=== PATIENT | male | born 1990 | race African-American/Black ===

== ENCOUNTER 2017-10-21 04:52 | Emergency (ER) | payer SELFPAY ==
[2017-10-21] MEDS ORDERED: Ibuprofen TAB* 600 MG PO ONE (05:14)
[2017-10-21] MEDS ORDERED: Tetan/Diph/Pertus SYR(Tdap)* 0.5 ML SYR(BOOSTRIX) use SYR IM ONE (05:14)
[2017-10-21] MEDS ORDERED: Ondansetron ODT TAB* 4 MG SL ONE (05:15)
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
[2017-10-21 06:48] VITALS: BP 126/84
--- NOTE | 2017-10-21 08:17 | RAD ---
INDICATION: Head injury. COMPARISON: There are no prior studies available for comparison. TECHNIQUE: Contiguous axial sections of the brain were obtained from the skull base to the vertex without contrast. FINDINGS: The ventricles, cisterns and sulci are within normal limits. No significant focal abnormality or mass effect is seen. There is no evidence for hemorrhage. No significant focal osseous abnormality is seen. The visualized portion of the paranasal sinuses and mastoid air cells appear clear. IMPRESSION: NO EVIDENCE FOR ACUTE INTRACRANIAL ABNORMALITY.
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
== END 2017-10-21 06:49 | disposition home or self-care (01) ==
LOC: ED 04:52
DX: S09.90XA Unspecified injury of head, initial encounter (principal); F19.10 Other psychoactive substance abuse, uncomplicated; T14.8XXA Other injury of unspecified body region, initial encounter; F17.210 Nicotine dependence, cigarettes, uncomplicated; Y04.2XXA Assault by strike against or bumped into by another person, initial encounter; Y92.9 Unspecified place or not applicable
CPT/HCPCS: 70450; 72125; 90471; 90715; 99282; A9270-GY

== ENCOUNTER 2017-12-23 02:59 | Emergency (ER) | payer SELFPAY ==
[2017-12-23] MEDS ORDERED: Mouth Piece, Nicotine* 1 EACH CARTRIDGE INH ONE (03:18)
[2017-12-23] MEDS ORDERED: Nicotine Inhaler* 10 MG AMP INH ONE (03:18)
[2017-12-23 03:38] LABS: ABS Basophils 0.1 10^3/ul (0-0.2); ABS Eosinophils 0 10^3/ul (0-0.6); ABS Lymphocytes 1.4 10^3/ul (1.0-4.8); ABS Monocytes 0.6 10^3/ul (0-0.8); ABS Neutrophils 4.4 10^3/ul (1.5-7.7); ABS Nucleated RBC 0 10^3/ul; Eosinophil % 0.7 % (0-6); Hematocrit 41 % (42-52); Hemoglobin 14.5 g/dl (14.0-18.0); Lymphocyte % 21.8 % (25-47); Mean Corpuscular HGB Conc 35 g/dl (31-36); Mean Corpuscular Hemoglobin 30 pg (27-31); Mean Corpuscular Volume 84 fL (80-94); Mean Platelet Volume 7.3 um3 (7.4-10.4); Nucleated Red Blood Cells % 0.1; Platelet Count 209 10^3/ul (150-450); Red Blood Count 4.84 10^6/ul (4.00-5.40); Red Cell Distribution Width 14 % (10.5-15); White Blood Count 6.5 10^3/ul (3.5-10.8)
[2017-12-23 03:45] LABS: Urine Appearance Clear; Urine Blood Negative (Negative); Urine Color Straw; Urine Ketones Negative (Negative); Urine Protein Negative (Negative); Urine Specific Gravity 1.005 (1.010-1.030); Urine Urobilinogen Negative (Negative)
--- NOTE | 2017-12-23 05:40 | ED ---
Geraldine Ronquillo Emily, scribed for Emily Oliveros MD on 12/23/17 at 0321 . Substance Abuse/Use - HPI Summary HPI Summary: This patient is a 27 year old M presenting to [facility] with a chief complaint of chronic cocaine abuse with a request for a MHE. The patient reports his last use of cocaine being at 0216 today. The patient rates the pain 0/10 in severity. Symptoms aggravated by nothing. Symptoms alleviated by nothing. Patient denies SI and HI. Pt reports he previously had a court order for rehab. - History Of Current Complaint Chief Complaint: EDMentalHealth Stated Complaint: MHE Time Seen by Provider: 12/23/17 03:06 Hx Obtained From: Patient Onset/Duration of Drug/ETOH Abuse: Years Ingestion History: Type/Name Of Drug - Cocaine, Approximate Time Of Ingestion - 215 today Timing Of Abuse: Daily Severity Initially: Mild Severity Currently: Mild Aggravating Factor(s): Nothing Alleviating Factor(s): Nothing Associated Signs And Symptoms: Other: - Negative SI and HI - Allergies/Home Medications Allergies/Adverse Reactions: Allergies Allergy/AdvReac Type Severity Reaction Status Date / Time No Known Allergies Allergy Verified 12/23/17 03:03 Home Medications: Home Medications NK [No Home Medications Reported] 12/23/17 [History Confirmed 12/23/17] PMH/Surg Hx/FS Hx/Imm Hx Previously Healthy: No Endocrine/Hematology History: Denies: Hx Diabetes, Hx Thyroid Disease Cardiovascular History: Denies: Hx Hypertension Respiratory History: Denies: Hx Asthma, Hx Chronic Obstructive Pulmonary Disease (COPD) GI History: Denies: Hx Ulcer Psychiatric History: Reports: Hx Substance Abuse Infectious Disease History: No Infectious Disease History: Denies: Hx Clostridium Difficile, Hx Hepatitis, Hx Human Immunodeficiency Virus (HIV), Hx of Known/Suspected MRSA, Hx Shingles, Hx Tuberculosis, Hx Known/ Suspected VRE, Hx Known/Suspected VRSA, History Other Infectious Disease, Traveled Outside the [place] in Last 30 Days - Family History Known Family History: Negative: Cardiac Disease - Social History Occupation: Unemployed Lives: Alone Alcohol Use: Rare Hx Substance Use: Yes Substance Use Type: Reports: Cocaine, Marijuana Substance Use Comment - Amount & Last Used: 12/23/2017 Hx Tobacco Use: Yes Smoking Status (MU): Current Every Day Smoker Type: Cigarettes Amount Used/How Often: 1-2 cig/day Length of Time of Smoking/Using Tobacco: 5+ years Have You Smoked in the Last Year: Yes Review of Systems Negative: Chest Pain Positive: Other - Negative SI and HI All Other Systems Reviewed And Are Negative: Yes Physical Exam - Summary Physical Exam Summary: VITAL SIGNS: Reviewed. GENERAL: Patient is a well-developed and nourished male who is lying comfortable in the stretcher. Patient is not in any acute respiratory distress. HEAD AND FACE: No signs of trauma. No ecchymosis, hematomas or skull depressions. No sinus tenderness. EYES: PERRLA, EOMI x 2, No injected conjunctiva, no nystagmus. EARS: Hearing grossly intact. Ear canals and tympanic membranes are within normal limits. MOUTH: Oropharynx within normal limits. NECK: Supple, trachea is midline, no adenopathy, no JVD, no carotid bruit, no c- spine tenderness, neck with full ROM. CHEST: Symmetric, no tenderness at palpation LUNGS: Clear to auscultation bilaterally. No wheezing or crackles. CVS: Regular rate and rhythm, S1 and S2 present, no murmurs or gallops appreciated. ABDOMEN: Soft, non-tender. No signs of distention. No rebound no guarding, and no masses palpated. Bowel sounds are normal. EXTREMITIES: FROM in all major joints, no edema, no cyanosis or clubbing. NEURO: Alert and oriented x 3. No acute neurological deficits. Speech is normal and follows commands. SKIN: Dry and warm Triage Information Reviewed: Yes Vital Signs On Initial Exam: Initial Vitals Temp Pulse Resp BP Pulse Ox 99.1 F 98 17 143/92 97 12/23/17 03:00 12/23/17 03:00 12/23/17 03:00 12/23/17 03:00 12/23/17 03:00 Vital Signs Reviewed: Yes Diagnostics - Vital Signs Vital Signs Temp Pulse Resp BP Pulse Ox 12/23/17 03:00 99.1 F 98 17 143/92 97 - Laboratory Result Diagrams: 12/23/17 03:25 12/23/17 03:25 Lab Statement: Any lab studies that have been ordered have been reviewed, and results considered in the medical decision making process. Course/Dx - Course Course Of Treatment: This patient is a 27 year old M presenting to [facility] with a chief complaint of chronic cocaine abuse with a request for a MHE. Bloodwork and UA obtained. Cleared for MHE at 0357. The patient will be discharged home with follow up from [facility] [email or web address] The patient is agreeable with this plan. - Diagnoses Differential Diagnosis/HQI/PQRI: Negative: Alcohol Abuse Provider Diagnoses: Substance abuse Discharge - Sign-Out/Discharge Documenting (check all that apply): Discharge/Admit/Transfer - Discharge home - Discharge Plan Condition: Stable Disposition: HOME The documentation as recorded by the Geraldine michele Emily accurately reflects the service I personally performed and the decisions made by , Emily Oliveros MD.
[2017-12-23 06:06] VITALS: BP 143/71
== END 2017-12-23 06:05 | disposition home or self-care (01) ==
LOC: ED 02:59
DX: F14.10 Cocaine abuse, uncomplicated (principal); F17.210 Nicotine dependence, cigarettes, uncomplicated
CPT/HCPCS: 36415; 80053; 80307; 80320; 80329; 81003; 84443; 85025; 99283; A9270-GY; G0480

== ENCOUNTER → 2018-02-18 04:00 | Emergency (ER) | payer MEDICAID ==
--- NOTE | 2018-02-18 04:12 | ED ---
Substance Abuse/Use - HPI Summary HPI Summary: Patient is brought in by police department after being arrested for criminal trespass. He became uncooperative and agitated while in custody related to his intoxication. He has subsequently been released and the charges have been dropped; he is no longer in police custody. He denies any injury to me. At this point, he would like to go home to a nearby apartment complex where his mother lives. He admits to heavy alcohol use tonight. - History Of Current Complaint Stated Complaint: 2208 Time Seen by Provider: 02/18/18 04:04 Hx Obtained From: Patient, Other: - Police Onset/Duration of Drug/ETOH Abuse: Hours - Allergies/Home Medications Allergies/Adverse Reactions: Allergies Allergy/AdvReac Type Severity Reaction Status Date / Time No Known Allergies Allergy Verified 12/23/17 03:03 PMH/Surg Hx/FS Hx/Imm Hx Previously Healthy: Yes Endocrine/Hematology History: Denies: Hx Diabetes, Hx Thyroid Disease Cardiovascular History: Denies: Hx Hypertension Respiratory History: Denies: Hx Asthma, Hx Chronic Obstructive Pulmonary Disease (COPD) GI History: Denies: Hx Ulcer Psychiatric History: Reports: Hx Substance Abuse Denies: Hx Eating Disorder, Hx of Violent Episodes Against Others Infectious Disease History: Denies: Hx Clostridium Difficile, Hx Hepatitis, Hx Human Immunodeficiency Virus (HIV), Hx of Known/Suspected MRSA, Hx Shingles, Hx Tuberculosis, Hx Known/ Suspected VRE, Hx Known/Suspected VRSA, History Other Infectious Disease, Traveled Outside the [place] in Last 30 Days - Family History Known Family History: Negative: Cardiac Disease - Social History Alcohol Use: Rare Hx Substance Use: Yes Substance Use Type: Reports: Cocaine, Marijuana Substance Use Comment - Amount & Last Used: 12/23/2017 Hx Tobacco Use: Yes Smoking Status (MU): Current Every Day Smoker Type: Cigarettes Amount Used/How Often: 1-2 cig/day Length of Time of Smoking/Using Tobacco: 5+ years Have You Smoked in the Last Year: Yes Review of Systems Constitutional: Negative Negative: Fever ENT: Negative Negative: Epistaxis Neurological: Negative Negative: Headache, Weakness, Paresthesia Psychological: Normal Negative: Anxious All Other Systems Reviewed And Are Negative: Yes Physical Exam - Summary Physical Exam Summary: General: This is a well-developed, well- nourished black male sitting on the stretcher in no apparent distress. The patient does not appear ill or toxic. HEENT:Extraocular movements are intact. Conjunctiva are normal without pallor. Pharynx is clear without exudate or swelling. Dentition is unremarkable. There is no sign of head trauma. Neck: Supple, no adenopathy noted. Lungs: Lungs are clear to auscultation. There are no signs of respiratory distress. Coronary: Peripheral perfusion is good. Heart sounds are regular, a normal S1 and S2 were auscultated. There is no gallop rhythm, nor any pathological sounded murmurs. Abdomen: The abdomen appears normal and is nondistended. Normoactive bowel sounds are present. On palpation, there is no significant tenderness, nor any guarding or rebound. There is no hepatosplenomegaly, nor any masses. Genitourinary: Deferred Back: Good range of motion is observed. There are no surface abnormalities nor any scoliosis. Extremities: Good range of motion was observed in all 4 extremities. There is no sign of any trauma to the extremities. Neurologic: The patient is awake and alert, speech is fluent in conversation is appropriate. There are no focal motor abnormalities. Cranial nerves are grossly intact. Deep tendon reflexes are 2+ and symmetric. There is no ataxia observed. Psychiatric. The patients affect is felt to be normal and appropriate. There is no sign of any hallucinations or delusions, or any other signs of psychosis. He does appear mildly intoxicated. Course/Dx - Course Course Of Treatment: The patient will sleep here for a few hours until he can safely walk to his mother's apartment - Diagnoses Provider Diagnoses: Alcohol intoxication Discharge - Sign-Out/Discharge Documenting (check all that apply): Patient Departure - Discharge Plan Condition: Improved Disposition: HOME Patient Education Materials: Abuse of Alcohol (ED) Referrals: [facility] [Outside] [facility] [Outside] No Primary Care Phys,NOPCP [Primary Care Provider] - - Billing Disposition and Condition Condition: IMPROVED Disposition: Home - Attestation Statements Document Initiated by Scribe: Yes Documenting Scribe: Nancy Nazario Provider For Whom Scribe is Documenting (Include Credential): Corona Clifford MD Scribe Attestation: Nancy Ronquillo, catibed for Corona Clifford MD on 02/19/18 at 0410. Scribe Documentation Reviewed: Yes Provider Attestation: The documentation as recorded by the Nancy michele accurately reflects the service I personally performed and the decisions made by me, Corona Clifford MD
[2018-02-18 06:36] VITALS: BP 122/68
== END | disposition home or self-care (01) ==
LOC: ED 04:00
DX: F10.129 Alcohol abuse with intoxication, unspecified (principal); F17.210 Nicotine dependence, cigarettes, uncomplicated
CPT/HCPCS: 99282

== ENCOUNTER 2018-03-02 05:45 | Emergency (ER) | payer MEDICAID ==
[2018-03-02] MEDS ORDERED: Tetan/Diph/Pertus SYR(Tdap)* 0.5 ML SYR(BOOSTRIX) use SYR IM ONE (06:23)
[2018-03-02 06:50] VITALS: BP 146/83
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
== END 2018-03-02 06:35 | disposition home or self-care (01) ==
LOC: ED 05:45
DX: S61.253A Open bite of left middle finger without damage to nail, initial encounter (principal); W50.3XXA Accidental bite by another person, initial encounter; Y92.9 Unspecified place or not applicable; F17.210 Nicotine dependence, cigarettes, uncomplicated
CPT/HCPCS: 90471; 90715; 99282

== ENCOUNTER 2019-05-29 21:47 | Emergency (ER) | payer SELFPAY ==
[2019-05-29] MEDS ORDERED: Cephalexin CAP* 500 MG PO ONE (22:23)
[2019-05-29] MEDS ORDERED: Tetan/Diph/Pertus SYR(Tdap)* 0.5 ML SYR(BOOSTRIX) use SYR contains LATEX IM ONE (22:23)
[2019-05-29] MEDS ORDERED: Ciprofloxacin TAB* 500 MG PO ONE (22:23)
[2019-05-29] MEDS ORDERED: Clindamycin CAP* 150 MG PO ONE (22:35)
--- NOTE | 2019-05-29 22:36 | ED ---
Lower Extremity - HPI Summary HPI Summary: 28-year-old male presents with left foot injury yesterday. He states that he stepped on something and it entered his foot. Denies any foreign body currently. He states he did clean area out afterwards. He denies any fevers or chills. He states she's been having more pain into the area. He admits some numbness. Has no medical conditions. Unsure last tetanus is. - History of Current Complaint Chief Complaint: EDExtremityLower Stated Complaint: LEFT FOOT INJURY Time Seen by Provider: 05/29/19 22:10 Pain Intensity: 8 - Allergies/Home Medications Allergies/Adverse Reactions: Allergies Allergy/AdvReac Type Severity Reaction Status Date / Time No Known Allergies Allergy Verified 12/23/17 03:03 PMH/Surg Hx/FS Hx/Imm Hx Endocrine/Hematology History: Denies: Hx Diabetes, Hx Thyroid Disease Cardiovascular History: Denies: Hx Hypertension Respiratory History: Denies: Hx Asthma, Hx Chronic Obstructive Pulmonary Disease (COPD) GI History: Denies: Hx Ulcer Psychiatric History: Reports: Hx Substance Abuse Denies: Hx Eating Disorder, Hx of Violent Episodes Against Others Infectious Disease History: No Infectious Disease History: Denies: Hx Clostridium Difficile, Hx Hepatitis, Hx Human Immunodeficiency Virus (HIV), Hx of Known/Suspected MRSA, Hx Shingles, Hx Tuberculosis, Hx Known/ Suspected VRE, Hx Known/Suspected VRSA, History Other Infectious Disease, Traveled Outside the in Last 30 Days - Family History Known Family History: Negative: Cardiac Disease - Social History Alcohol Use: Rare Hx Substance Use: Yes Substance Use Type: Reports: Cocaine, Marijuana Substance Use Comment - Amount & Last Used: 12/23/2017 Hx Tobacco Use: Yes Smoking Status (MU): Current Every Day Smoker Type: Cigarettes Amount Used/How Often: 1-2 cig/day Length of Time of Smoking/Using Tobacco: 5+ years Have You Smoked in the Last Year: Yes Review of Systems Negative: Fever Negative: Chest Pain Negative: Shortness Of Breath Positive: Rash, Other - puncture wound left foot All Other Systems Reviewed And Are Negative: Yes Physical Exam Triage Information Reviewed: Yes Vital Signs On Initial Exam: Initial Vitals Temp Pulse Resp BP Pulse Ox 101 F 79 18 144/92 97 05/29/19 21:49 05/29/19 21:49 05/29/19 21:49 05/29/19 21:49 05/29/19 21:49 Vital Signs Reviewed: Yes Appearance: Positive: Well-Appearing Skin: Positive: Warm, Dry, Other - left foot puncture wound some mild erythema around with warmth Head/Face: Positive: Normal Head/Face Inspection Eyes: Positive: Normal, Conjunctiva Clear ENT: Positive: Pharynx normal Respiratory/Lung Sounds: Positive: Clear to Auscultation, Breath Sounds Present Cardiovascular: Positive: Normal, RRR Musculoskeletal: Positive: Strength/ROM Intact - left foot, Other - good pulses Neurological: Positive: Normal Psychiatric: Positive: Normal Procedures - Sedation Patient Received Moderate/Deep Sedation with Procedure: No Diagnostics - Vital Signs Vital Signs Temp Pulse Resp BP Pulse Ox 05/29/19 21:49 101 F 79 18 144/92 97 - Laboratory Lab Statement: Any lab studies that have been ordered have been reviewed, and results considered in the medical decision making process. Lower Extremity Course/Dx - Course Course Of Treatment: 28-year-old male presents with left foot injury yesterday. He states that he stepped on something and it entered his foot. Denies any foreign body currently. He states he did clean area out afterwards. He denies any fevers or chills. He states she's been having more pain into the area. He admits some numbness. Has no medical conditions. Unsure last tetanus is. On exam has puncture wound noted to left foot. No foreign body seen or felt. Irrigated area out. Has some mild erythema around the wound. Will treat as a cellulitis with clindamycin. We'll also get Cipro to cover for pseudomonas as puncture wound went through his foot. Gave tetanus. Repeat temp was 99 temporally. Believed 101 temp was false as was wearing a hat. [facility]. Warned if rash continues to spread to return. Patient understands agrees the plan. - Diagnoses Differential Diagnosis/HQI/PQRI: Positive: Cellulitis, Foreign Body, Other - puncture wound Provider Diagnoses: Puncture wound, Cellulitis Discharge ED - Sign-Out/Discharge Documenting (check all that apply): Patient Departure - Discharge Plan Condition: Good Disposition: HOME Prescriptions: Ciprofloxacin TAB* [Cipro 500 MG TAB*] 500 mg PO BID #13 tab Clindamycin Cap(NF) [Clindamycin Cap 300 mg Cap(NF)] 300 mg PO TID #29 cap Patient Education Materials: Cellulitis (ED) Referrals: [facility] [Outside] Additional Instructions: Take clindamycin three times a day for 10 days, first dose given in ED take cipro twice a day for 7 days, first dose given in ED wash area twice a day with soap and water Elevate extremity Take Tylenol or ibuprofen every 6 hours for pain Follow up with [facility] Return to ED if redness spreads, develop persistent fevers, or any new or worsening symptoms - Billing Disposition and Condition Condition: GOOD Disposition: Home
[2019-05-29 22:57] VITALS: BP 140/81
== END 2019-05-29 22:56 | disposition home or self-care (01) ==
LOC: ED 21:47
DX: S91.332A Puncture wound without foreign body, left foot, initial encounter (principal); L03.116 Cellulitis of left lower limb; W22.8XXA Striking against or struck by other objects, initial encounter; Y92.9 Unspecified place or not applicable; F17.210 Nicotine dependence, cigarettes, uncomplicated; Z23 Encounter for immunization
CPT/HCPCS: 90471; 90715; 99282; A9270-GY

== ENCOUNTER 2019-09-18 02:24 | Emergency (ER) | payer SELFPAY ==
[2019-09-18 02:30] VITALS: BP 147/100
== END 2019-09-18 03:43 | disposition left against medical advice (07) ==
LOC: ED 02:24
DX: R51 Headache (principal); Z53.21 Procedure and treatment not carried out due to patient leaving prior to being seen by health care provider
CPT/HCPCS: 99282